=== PATIENT | male | born 1975 | race Caucasian/White ===

== ENCOUNTER 2019-01-15 20:33 | Emergency (ER) | payer BC, OTHER ==
[2019-01-15 20:38] VITALS: BP 137/85; PULSE 89; RESP 18; TEMP 97.9
--- NOTE | 2019-01-15 20:56 | ED ---
Upper Extremity HPI - General Chief Complaint: Extremity Injury, Upper Stated Complaint: L Elbow Injury Time Seen by Provider: 01/15/19 20:40 Source: patient, RN notes reviewed Mode of arrival: ambulatory Limitations: no limitations - History of Present Illness Initial Comments: 43-year-old male presents emergency Department chief complaint of left elbow pain. 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 Patient states that he hasn't pain which they did swell up with the swelling went away but he again had repeat trauma of the same nature. Patient states that now it's more swollen, redness. Patient states she's had no fevers or chills. Denies any open wounds. - Related Data Previous Rx's Medication Instructions Recorded Clindamycin HCl 300 mg PO Q6HR #40 cap 01/15/19 Ibuprofen [Motrin] 600 mg PO Q8HR PRN #30 tab 01/15/19 Allergies Allergy/AdvReac Type Severity Reaction Status Date / Time gentamicin Allergy Rash/Hives Verified 01/15/19 20:38 methicillin Allergy Rash/Hives Verified 01/15/19 20:38 vancomycin Allergy Rash/Hives Verified 01/15/19 20:38 Review of Systems ROS Statement: Those systems with pertinent positive or pertinent negative responses have been documented in the HPI. ROS Other: All systems not noted in ROS Statement are negative. Past Medical History Additional Past Medical History / Comment(s): CHD History of Any Multi-Drug Resistant Organisms: None Reported Additional Past Surgical History / Comment(s): Born with tetrology of fallot, six open heart surgeries. Past Psychological History: No Psychological Hx Reported Smoking Status: Never smoker Past Alcohol Use History: None Reported Past Drug Use History: None Reported General Exam Limitations: no limitations General appearance: alert, in no apparent distress Head exam: Present: atraumatic, normocephalic, normal inspection Eye exam: Present: normal appearance, PERRL, EOMI. Absent: scleral icterus, conjunctival injection, periorbital swelling Neck exam: Present: normal inspection, full ROM. Absent: tenderness, meningismus, lymphadenopathy Respiratory exam: Present: normal lung sounds bilaterally. Absent: respiratory distress, wheezes, rales, rhonchi, stridor Cardiovascular Exam: Present: regular rate, normal rhythm, normal heart sounds. Absent: systolic murmur, diastolic murmur, rubs, gallop, clicks Extremities exam: Present: other (Left elbow there is moderate swelling, mild redness noted to the forearm full range of motion neurovascular intact there is moderate tenderness over the olecranon process) Neurological exam: Present: alert, oriented X3, CN II-XII intact Skin exam: Present: warm, dry, intact, normal color. Absent: rash Course Vital Signs 01/15/19 20:34 Temperature 97.9 F Pulse Rate 89 Respiratory 18 Rate Blood Pressure 137/85 O2 Sat by Pulse 97 Oximetry Medical Decision Making - Medical Decision Making X-ray shows soft tissue swelling. Patient has evidence of olecranon bursitis there is some redness concerning for early infection will be started on clindamycin Disposition Clinical Impression: Olecranon bursitis of left elbow Disposition: HOME SELF-CARE Condition: Stable Instructions (If sedation given, give patient instructions): Elbow Bursitis ( ED) Additional Instructions: Please return to the Emergency Department if symptoms worsen or any other concerns. Prescriptions: Clindamycin HCl 300 mg PO Q6HR #40 cap Ibuprofen [Motrin] 600 mg PO Q8HR PRN #30 tab PRN Reason: Pain Is patient prescribed a controlled substance at d/c from ED?: No Referrals: Aruna Naranjo MD [Primary Care Provider] - 1-2 days Time of Disposition: 21:21
--- NOTE | 2019-01-15 21:14 | XR ---
EXAMINATION TYPE: XR elbow complete LT DATE OF EXAM: 01/15/2019 COMPARISON: NONE HISTORY: Elbow pain TECHNIQUE: 3 views FINDINGS: There is soft tissue swelling over the olecranon process of the ulna. I see no fracture nor dislocation. Joint spaces are fairly normal. IMPRESSION: Posterior soft tissue swelling. No fracture seen.
[2019-01-15] MEDS ORDERED: CLINDAMYCIN 150 MG CAP PO STA (21:18)
== END 2019-01-15 21:40 | disposition home or self-care (01) ==
LOC: EC 20:33
DX: M70.22 Olecranon bursitis, left elbow (principal); Z88.0 Allergy status to penicillin; Z88.1 Allergy status to other antibiotic agents
CPT/HCPCS: 99283

== ENCOUNTER → 2024-06-20 | Outpatient (CLI) | payer BC ==
--- NOTE | 2024-06-20 21:59 | MR ---
MRI CERVICAL SPINE: CLINICAL HISTORY: Neck pain into left upper arm with weakness, loss of strength,x2 months Neck pain i nto left upper arm with weakness, loss of strength,x2 months TECHNIQUE: Multiplanar, multisequence imaging of the cervical spine is performed without IV contrast. COMPARISON: None. FINDINGS: Sagittal images of the cervical spine show the craniocervical junction to appear within nor mal limits. The cervical and upper thoracic spinal cord is normal in caliber and signal. There is so me reversal of normal cervical curvature centered at C5 level. There is slight levoconvex scoliotic c urvature centered in the mid to lower cervical spine. There is grade 1 retrolisthesis C5 on C6. The v ertebral body heights are normal. Mild to moderate disc space narrowing at C5-C6 and C6-C7 levels is present. The bone marrow signal intensity is within normal limits. Axial images show at C2-C3 level shows uncovertebral facet degenerative change causing mild bilateral neural foraminal narrowing. Axial images at C3-C4 level shows broad-based posterior disc protrusion effaces the anterior thecal s ac and uncovertebral facet degenerative change causing [id number] bilateral neural foraminal na rrowing. Axial images at C4-C5 level showed broad based left paracentral disc protrusion and uncovertebral fac et degenerative change. There is effacement of the anterior thecal sac. There is moderate left-sided neural foraminal narrowing. Axial images at C5-C6 level shows broad-based posterior disc protrusion effacing anterior thecal sac and marginal spurring causing moderate to severe bilateral neural foraminal narrowing. Axial images at C6-C7 level showed broad based posterior disc protrusion effacing anterior thecal sac and causing moderate to advanced bilateral neural foraminal narrowing. Axial images at C7-T1 level appear within normal limits. IMPRESSION: Loss of normal cervical curvature with multilevel degenerative change most prominent at C 4-C5 through C6-C7 levels as detailed above. [facility], , 06/20/2024 9:57 PM
== END | disposition home or self-care (01) ==
LOC: RADMRIMAIN 21:15
PROVIDERS: ATTEND Physical Medicine & Rehabilitation
DX: M50.123 Cervical disc disorder at C6-C7 level with radiculopathy (principal); M47.22 Other spondylosis with radiculopathy, cervical region; M99.71 Connective tissue and disc stenosis of intervertebral foramina of cervical region
CPT/HCPCS: 72141